=== PATIENT | female | born 1975 | race American Indian/Alaskan Native ===

== ENCOUNTER 2022-06-08 11:32 | Emergency (ER) | payer MEDICAID ==
[~2022-06-08] VITALS: Ht 149.9 cm; Wt 56.8 kg
[2022-06-08] MEDS ORDERED: methylPREDNISolone sod succ 125mg/2ml vial IV ONE (11:40)
[2022-06-08] MEDS ORDERED: diphenhydrAMINE 50 mg/ml inj IV ONE (11:40)
[2022-06-08] MEDS ORDERED: famotidine/PF 10 mg/ml inj IV ONE (11:40)
[2022-06-08] MEDS ORDERED: epiNEPHrine 1 mg/ml inj SQ STA (11:48)
[2022-06-08] MEDS ORDERED: EPIN0.3P3 IM (12:46)
[2022-06-08 12:54] VITALS: BP 114/71
== END 2022-06-08 13:25 | disposition home or self-care (01) ==
LOC: ER 11:33
DX: T78.40XA Allergy, unspecified, initial encounter (principal); R07.0 Pain in throat; R00.0 Tachycardia, unspecified; F41.9 Anxiety disorder, unspecified; Z88.0 Allergy status to penicillin; Z91.030 Bee allergy status; Z79.899 Other long term (current) drug therapy; Y92.89 Other specified places as the place of occurrence of the external cause
CPT/HCPCS: 96372; 96374; 96375; 99284; J0171; J1200; J2930; J3490